=== PATIENT | female | born 1960 | race Caucasian/White ===

== ENCOUNTER → 2020-12-11 | Outpatient (CLI) | payer MEDICARE, OTHER ==
[~2020-12-11] MED LIST: ECOTRIN81 MG PO; LIPITOR TAB 1010 MG PO; LORTAB 5-325 M1 EACH PO; NEURONTIN 100100 MG PO; TOPIRAMATE50 MG PO; VITAMIN B-121000 MCG PO; VITAMIN D34000 UNIT PO; ZESTRIL2.5 MG PO
== END ==
LOC: ECHO 10:35
DX: I51.9 Heart disease, unspecified (principal); I51.7 Cardiomegaly; I34.0 Nonrheumatic mitral (valve) insufficiency
CPT/HCPCS: ECHO; 93306

== ENCOUNTER → 2021-03-27 | Outpatient (CLI) | payer MEDICARE, OTHER | LOC: EXRD 13:53 | DX: M79.605 Pain in left leg (principal); M79.89 Other specified soft tissue disorders | CPT/HCPCS: 93971 ==

== ENCOUNTER 2021-10-23 19:58 | Observation (INO) | payer MEDICARE, OTHER ==
[~2021-10-23] VITALS: Ht 172.7 cm; Wt 90.7 kg
[~2021-10-23 19:58] MED LIST changes: -ECOTRIN81 MG PO; -LIPITOR TAB 1010 MG PO; -LORTAB 5-325 M1 EACH PO; -TOPIRAMATE50 MG PO; -VITAMIN B-121000 MCG PO; -VITAMIN D34000 UNIT PO
[2021-10-23 21:19] LABS: HEMOGLOBIN 14.4 gm/dl (12.3-15.3); RED BLOOD COUNT 4.48 M/UL (4.00-5.10); WHITE BLOOD COUNT 22.4 K/UL (4.5-11.0)
[2021-10-24 05:53] LABS: HEMOGLOBIN 13.4 gm/dl (12.3-15.3); RED BLOOD COUNT 4.14 M/UL (4.00-5.10); WHITE BLOOD COUNT 20.5 K/UL (4.5-11.0)
[2021-10-24] MEDS ORDERED: BUMETANIDE1 MG PO (09:34)
[2021-10-24] MEDS ORDERED: CARVEDILOL6.25 MG PO (09:34)
[2021-10-24] MEDS ORDERED: ENTRESTO 24 MG1 EACH PO (09:34)
[2021-10-24] MEDS ORDERED: POTASSIUM CHLO10 ME1 PO (09:35)
[2021-10-24] MEDS ORDERED: VITAMIN B-121000 MCG PO (10:11)
[2021-10-24] MEDS ORDERED: VITAMIN D325 MCG PO (10:12)
[2021-10-24] MEDS ORDERED: TOPIRAMATE50 MG PO (10:14)
[2021-10-24] MEDS ORDERED: HYDROCODON-ACE1 EAC6 PO (10:16)
[2021-10-24] MEDS ORDERED: LIPITOR40 MG PO (10:18)
[2021-10-24] MEDS ORDERED: ECOTRIN81 MG PO (10:19)
== END 2021-10-24 12:26 | disposition home or self-care (01) ==
LOC: ER1 19:58 → CDU 10-24 00:20 → 3 EAST 10-24 00:20
PROVIDERS: Preventive Medicine Occupational Medicine; ADMIT Surgery
DX: K59.00 Constipation, unspecified (principal); M54.9 Dorsalgia, unspecified; Z95.0 Presence of cardiac pacemaker; Z20.822 Contact with and (suspected) exposure to COVID-19
CPT/HCPCS: 36415; 74018; 80053; 83690; 85025; 86140; 93005; 96374; 96376; 99285; G0378; J1170; Q9967; U0002